=== PATIENT | female | born 1965 | race African-American/Black ===

== ENCOUNTER → 2016-07-05 | Outpatient (CLI) | payer OTHER ==
--- NOTE | 2016-07-05 15:37 | RAD ---
INDICATION: Lymphadenopathy of neck COMPARISON: None. TECHNIQUE: Grayscale and color ultrasound images obtained of the thyroid. FINDINGS: Right Lobe: 4.0 x 1.6 x 1.3 cm. Left Lobe: 4.0 x 1.5 x 1.4 cm. 9 mm complex solid appearing mass with internal vascularity right upper thyroid There is some fullness to the right submandibular region which appears hypoechoic. IMPRESSION: 1. 9 mm solid nodule seen in the right lobe of the thyroid. Follow-up examination could be obtained in 6-12 months to ensure no growth. 2. The right submandibular gland may be mildly hypoechoic. This is a borderline finding but attention on follow-up examination to ensure that this is not secondary to cause such as a region of inflammation.
--- NOTE | 2016-07-06 10:27 | RAD ---
DATE: 07/05/2016 EXAM: DIGITAL SCREEN BILAT W/CAD HISTORY: Routine screening COMPARISON: Baseline study This study was interpreted with the benefit of Computerized Aided Detection (CAD). FINDINGS: There are scattered fibroglandular densities in both breasts. No mass or suspicious microcalcifications are seen. The axillary regions are unremarkable. IMPRESSION: There is no mammographic evidence of malignancy in either breast. BI-RADS CATEGORY: 1 NEGATIVE RECOMMENDED FOLLOW-UP: 12M 12 MONTH FOLLOW-UP PQRS compliance statement: Patient information was entered into a reminder system with a target due date for the next mammogram. Mammography is a sensitive method for finding small breast cancers, but it does not detect them all and is not a substitute for careful clinical examination. A negative mammogram does not negate a clinically suspicious finding and should not result in delay in biopsying a clinically suspicious abnormality. "Our facility is accredited by the [employer] Mammography Program."
== END | disposition home or self-care (01) ==
LOC: US 14:28
PROVIDERS: ATTEND Family Medicine
DX: Z12.31 Encounter for screening mammogram for malignant neoplasm of breast (principal); R59.0 Localized enlarged lymph nodes
CPT/HCPCS: 76536; G0202; 77067

== ENCOUNTER → 2016-07-22 | Outpatient (CLI) | payer OTHER ==
[~2016-07-22] VITALS: Ht 162.6 cm; Wt 55.8 kg
[~2016-07-22] MED LIST: Iron PO
[2016-07-22 12:01] VITALS: BP 109/69
--- NOTE | 2016-07-22 14:38 | RAD ---
Exam performed: Limited thyroid ultrasound History: Subcentimeter right thyroid nodule. Date of service: 07/22/16. Discussion: The patient presents for a fine-needle aspiration of a 6.7 mm hypoechoic nodule in the right lobe of the thyroid gland adjacent to the carotid artery. Rescanning redemonstrates the nodules which is hypervascular and is surrounded by large vessels. A safe approach to biopsy the nodule was not found. It was considered that a follow-up of the subcentimeter nodule may be a reasonable approach Impression: Fine needle aspiration of a 6.7 mm hypoechoic nodule was not performed due to reasons mentioned above. This was discussed with the patient and discussed with Dr. Suad Pereira's medical office supervisor. She will follow-up with the patient
== END | disposition home or self-care (01) ==
LOC: US 11:41
PROVIDERS: ATTEND Surgery
DX: E04.1 Nontoxic single thyroid nodule (principal)
CPT/HCPCS: 76536

== ENCOUNTER → 2017-01-25 | Outpatient (CLI) | payer SELFPAY ==
[2016-07-22 12:01] VITALS: BP 109/69
--- NOTE | 2017-01-25 11:33 | RAD ---
Indication follow-up. Grayscale imaging of the thyroid was performed. Note is made of previous studies 07/22/2016 and 07/05/2016 The right lobe of the thyroid measures 4.6 x 1.3 x 1.2 cm and the left lobe of the thyroid measures 4.3 x 1.2 x 1.1 cm. Within the right lobe of the thyroid is a persistent nodule measuring approximately 8 mm in greatest dimension slight but slightly hypoechoic to the normal appearing thyroid. It appears relatively unchanged. The left lobe of the thyroid is unremarkable. IMPRESSION: Unchanged 8 mm nodule in the right lobe of the thyroid
== END | disposition home or self-care (01) ==
LOC: US 10:56
PROVIDERS: ATTEND Surgery
DX: E04.1 Nontoxic single thyroid nodule (principal)
CPT/HCPCS: 76536

== ENCOUNTER → 2018-02-13 | Outpatient (CLI) | payer OTHER ==
[2016-07-22 12:01] VITALS: BP 109/69
--- NOTE | 2018-02-13 17:06 | RAD ---
Thyroid sonography Clinical indications: Follow-up of thyroid nodule COMPARISON: January 25, 2017. FINDINGS: The longitudinal and AP and transverse dimensions of the right lobe are 4.7 cm and 1.2 cm and 1.6 cm respectively. Again seen is a hypoechoic solid nodule of the anterior mid aspect of the right lobe which measures 11 mm in greatest dimension. It measured 8 mm previously. The longitudinal and AP and transverse dimensions of the left lobe are 4.1 cm and 1.5 cm and 1.2 cm respectively. No nodule of the left lobe is evident. The isthmus is homogeneous and measures 1.2 mm in thickness. IMPRESSION: Mild increase in size of solid hypoechoic nodule of the right lobe of the thyroid gland. Given it's hypoechoic appearance and solitary nature and increase in size, recommend ultrasound-guided fine-needle aspiration. Electronically signed by: Lanre Loaiza MD (02/13/2018 5:02 PM) [id number]
== END | disposition home or self-care (01) ==
LOC: US 15:56
PROVIDERS: ATTEND Surgery
DX: E04.1 Nontoxic single thyroid nodule (principal)
CPT/HCPCS: 76536

== ENCOUNTER → 2018-02-13 | Outpatient (CLI) | payer OTHER ==
[2016-07-22 12:01] VITALS: BP 109/69
--- NOTE | 2018-02-13 13:27 | RAD ---
DATE: 02/13/2018 EXAM: DIGITAL SCREEN BILAT W/CAD HISTORY: Routine screening COMPARISON: 07/05/2016 This study was interpreted with the benefit of Computerized Aided Detection (CAD). Breast Density: SCATTERED The breast parenchyma shows scattered fibroglandular densities. Breast parenchyma level B. FINDINGS: No new or enlarging breast densities are seen. No suspicious microcalcifications are evident. IMPRESSION: Stable mammograms without evidence of malignancy. BI-RADS CATEGORY: 1 NEGATIVE RECOMMENDED FOLLOW-UP: 12M 12 MONTH FOLLOW-UP PQRS compliance statement: Patient information was entered into a reminder system with a target due date for the next mammogram. Mammography is a sensitive method for finding small breast cancers, but it does not detect them all and is not a substitute for careful clinical examination. A negative mammogram does not negate a clinically suspicious finding and should not result in delay in biopsying a clinically suspicious abnormality. "Our facility is accredited by the [employer] Mammography [employer]."
== END | disposition home or self-care (01) ==
LOC: MAMMO 12:49
PROVIDERS: ATTEND Family Medicine
DX: Z12.31 Encounter for screening mammogram for malignant neoplasm of breast (principal)
CPT/HCPCS: 77067

== ENCOUNTER → 2018-03-21 | Outpatient (CLI) | payer OTHER ==
[2016-07-22 12:01] VITALS: BP 109/69
[~2018-03-21] MED LIST changes: +LIDOCAINE 1% Multi-Dose 50 ML VIAL. INJ ONE
--- NOTE | 2018-03-21 14:46 | RAD ---
Ultrasound-guided right thyroid biopsy, 03/21/2018: History: Suspicious thyroid nodule Previous studies demonstrated a suspicious nodule in the right lobe of the gland. Under local anesthesia, aseptic conditions and sonographic guidance a 25-gauge needle was passed into this nodule via an anteromedial approach. 4 separate aspirates were obtained from the nodule in this manner with the materials sent to pathology for evaluation. Hemostasis was then obtained. The patient tolerated the procedure well and left the department in good condition. The pathology results are pending.
--- NOTE | 2018-03-22 16:09 | PATHOLOGY ---
Note [facility] Accession Number: [id number] TESTS RESULT FLAG UNITS REF RANGE LAB Clinician Provided Cytology Information No. of containers..01 Other (Miscellaneous) Source: RT THYROID DIAGNOSIS: RT THYROID INADEQUATE, INSUFFICIENT CELLS FOR STUDY. [place] CATEGORY I. NONDIAGNOSTIC: VIRTUALLY ACELLULAR SPECIMEN. THIS INTERPRETATION INCLUDES EVALUATION OF A CELL BLOCK. Signed out by: Rich Bryan MD, Pathologist NPI- [id number] Performed by: Sheng Cortez, Environmental Services Floor Tech ([facility]) Gross description: 01 30ML, PINK, CLOUDY /LCS FLAG LEGEND: L-Low Normal,H-High Normal,LL-Alert Low,HH-Alert High <-Panic Low,>-Panic High,A-Abnormal,AA-Critical Abnormal Performed at: [address] [place] [address] Yfn Vivas MD, [facility] [address] [place] [address] Frantz Hopkins MD, Specimen Comment: A courtesy copy of this report has been sent to Specimen Comment: [phone]. Specimen Comment: Report sent to Performed at: [address] [place] [address] [address], [place], [place] [id number] MD Yfn Vivsa MD Phone: [phone]
== END | disposition home or self-care (01) ==
LOC: US 13:33
PROVIDERS: ATTEND Surgery
DX: E04.1 Nontoxic single thyroid nodule (principal)
CPT/HCPCS: 10022; 76942; 88173; 88305

== ENCOUNTER → 2018-04-03 | Day surgery (SDC) | payer OTHER ==
[~2018-04-03] MED LIST changes: +IV RINGERS,LACTATED 1000ML 1,000 ML IV SCH; -LIDOCAINE 1% Multi-Dose 50 ML VIAL. INJ ONE; +MIDAZOLAM HCL/PF 5 MG/5 ML VIAL. IV ONE; +MIDAZOLAM HCL/PF 5 MG/5 ML VIAL. ONE; +diphenhydrAMINE 50 MG/ML VIAL IV ONE; +diphenhydrAMINE 50 MG/ML VIAL ONE; +fentaNYL PF VIAL 100 MCG/2 ML VIAL IV ONE; +fentaNYL PF VIAL 100 MCG/2 ML VIAL ONE
[2018-04-03 17:15] VITALS: BP 113/71
== END | disposition home or self-care (01) ==
LOC: ENDOS 15:26
PROVIDERS: ATTEND Internal Medicine Gastroenterology
DX: Z12.11 Encounter for screening for malignant neoplasm of colon (principal); K57.30 Diverticulosis of large intestine without perforation or abscess without bleeding; K64.0 First degree hemorrhoids; D64.9 Anemia, unspecified; Z72.89 Other problems related to lifestyle
CPT/HCPCS: 45378; G0500; J1200; J2250; J3010

== ENCOUNTER → 2019-02-14 | Outpatient (CLI) | payer OTHER ==
[2018-04-03 17:15] VITALS: BP 113/71
[~2019-02-14] MED LIST changes: -IV RINGERS,LACTATED 1000ML 1,000 ML IV SCH; -MIDAZOLAM HCL/PF 5 MG/5 ML VIAL. IV ONE; -MIDAZOLAM HCL/PF 5 MG/5 ML VIAL. ONE; -diphenhydrAMINE 50 MG/ML VIAL IV ONE; -diphenhydrAMINE 50 MG/ML VIAL ONE; -fentaNYL PF VIAL 100 MCG/2 ML VIAL IV ONE; -fentaNYL PF VIAL 100 MCG/2 ML VIAL ONE
--- NOTE | 2019-02-15 17:12 | RAD ---
DATE: 02/14/2019 EXAM: DIGITAL SCREEN BILAT W/CAD HISTORY: Routine screening COMPARISON: 07/05/2016, 02/13/2018 mammographic exams This study was interpreted with the benefit of Computerized Aided Detection (CAD). Breast Density: HETERO The breast parenchyma is heterogenously dense, which could reduce sensitivity of mammography. Breast parenchyma level C. FINDINGS: No suspicious calcific lesions, masses, or distortion. IMPRESSION: Stable BI-RADS CATEGORY: 1 NEGATIVE RECOMMENDED FOLLOW-UP: 12M 12 MONTH FOLLOW-UP PQRS compliance statement: Patient information was entered into a reminder system with a target due date in one year for the next mammogram. Mammography is a sensitive method for finding small breast cancers, but it does not detect them all and is not a substitute for careful clinical examination. A negative mammogram does not negate a clinically suspicious finding and should not result in delay in biopsying a clinically suspicious abnormality. "Our facility is accredited by the [employer] Mammography Program."
== END | disposition home or self-care (01) ==
LOC: MAMMO 09:58
PROVIDERS: ATTEND Family Medicine
DX: Z12.31 Encounter for screening mammogram for malignant neoplasm of breast (principal); N64.89 Other specified disorders of breast
CPT/HCPCS: 77067

== ENCOUNTER → 2019-03-18 | Outpatient (CLI) | payer OTHER ==
[2018-04-03 17:15] VITALS: BP 113/71
--- NOTE | 2019-03-19 14:37 | RAD ---
THYROID ULTRASOUND History: Follow-up right thyroid nodule. Comparison: February 13, 2018. Technique: Multiple grayscale and color Doppler images of the thyroid gland were obtained. Findings: Right thyroid measures 4.1 x 1.4 x 1.2 cm . Left thyroid measures 4.0 x 1.2 x 1.4 cm. Isthmus measures 0.2 cm. Solid slightly hypoechoic nodule within the right mid thyroid measures 1.1 x 0.8 x 0.6 cm, unchanged compared to prior. TI-RADS 4. No new nodules. ACR Thyroid Imaging, Reporting And Data System (TI-RADS): White Paper Of The ACR TI-RADS Committee. Journal of the [employer], volume 14, issue 5, pages 587-595 (September 2016). IMPRESSION: 1. Unchanged TI-RADS 4 right thyroid nodule. No new nodules. Electronically signed by: Tim Boss DO (03/19/2019 2:34 PM) [facility]
== END | disposition home or self-care (01) ==
LOC: US 10:47
PROVIDERS: ATTEND Surgery
DX: E04.1 Nontoxic single thyroid nodule (principal)
CPT/HCPCS: 76536

== ENCOUNTER → 2020-03-05 | Outpatient (CLI) | payer OTHER ==
[2018-04-03 17:15] VITALS: BP 113/71
--- NOTE | 2020-03-06 13:11 | RAD ---
DATE: 03/05/2020 10:29 AM EXAM: DIGITAL SCREEN BILAT W/CAD HISTORY: Screening COMPARISON: 02/14/2019 Bilateral full field craniocaudal and mediolateral oblique images were obtained using digital technique. This study was interpreted with the benefit of Computerized Aided Detection (CAD). FINDINGS: Breast Density: SCATTERED The breast parenchyma shows scattered fibroglandular densities. Breast parenchyma level B No suspicious masses, microcalcifications or architectural distortion is present to suggest malignancy in either breast. The visualized axillae are unremarkable. IMPRESSION: No mammographic evidence of malignancy. BI-RADS CATEGORY: 1 NEGATIVE RECOMMENDED FOLLOW-UP: 12M 12 MONTH FOLLOW-UP Annual screening mammography is recommended, unless clinically indicated sooner based on symptoms or change in physical exam. PQRS compliance statement: Patient information was entered into a reminder system with a target due date for the next mammogram. Mammography is a sensitive method for finding small breast cancers, but it does not detect them all and is not a substitute for careful clinical examination. A negative mammogram does not negate a clinically suspicious finding and should not result in delay in biopsying a clinically suspicious abnormality. "Our facility is accredited by the [employer] Mammography Program."
== END ==
LOC: MAMMO 10:22
PROVIDERS: ATTEND Family Medicine
DX: Z12.31 Encounter for screening mammogram for malignant neoplasm of breast (principal)
CPT/HCPCS: 77067

== ENCOUNTER → 2020-03-16 | Outpatient (CLI) | payer OTHER ==
[2018-04-03 17:15] VITALS: BP 113/71
--- NOTE | 2020-03-16 17:11 | RAD ---
Ultrasound soft tissue neck thyroid HISTORY: Follow-up thyroid nodule Sonographic examination of the anterior neck and thyroid was performed and multiple static images were obtained. COMPARISON: March 18, 2019 The right lobe of the thyroid measures 4.8 x 1.3 x 1.1 cm. The left lobe of the thyroid measures 4.4 x 1.3 x 1.1 cm. The isthmus measures 2.1 mm in thickness. There is an isoechoic nodule in the mid right lobe of the thyroid anteriorly that measures 1.0 x 0.8 x 0.6 cm. IMPRESSION: Stable benign-appearing nodule right lobe of the thyroid. No new findings. Electronically signed by: Morgan Boyd III, MD (03/16/2020 5:08 PM) [facility]
== END ==
LOC: US 16:00
PROVIDERS: ATTEND Surgery
DX: E04.1 Nontoxic single thyroid nodule (principal)
CPT/HCPCS: 76536

== ENCOUNTER → 2020-06-01 | Outpatient (CLI) | payer OTHER ==
[2018-04-03 17:15] VITALS: BP 113/71
[2020-06-01 12:45] LABS: BASO % 0 % (0-3); EOS # 0.1 x10^3/uL (0.0-0.7); EOS % 1 % (0-3); HEMATOCRIT 35.4 % (36.0-47.0); HEMOGLOBIN 11.4 g/dL (12.0-15.5); LYMPH % 21 % (24-48); MEAN CORPUSCULAR HEMOGLOBIN 21 pg (25-35); MEAN CORPUSCULAR HGB CONC 32 g/dL (31-37); MEAN CORPUSCULAR VOLUME 66 fL (79-100); MONO # 0.8 x10^3/uL (0.0-1.1); MONO % 9 % (0-9); NEUT # 6.5 x10^3/uL (1.8-7.7); NEUT % 69 % (31-73); PLATELET COUNT 240 x10^3/uL (140-400); RED BLOOD COUNT 5.33 x10^6/uL (3.50-5.40); RED CELL DISTRIBUTION WIDTH 16.7 % (11.5-14.5); WHITE BLOOD COUNT 9.4 x10^3/uL (4.0-11.0)
[2020-06-01 12:56] LABS: CALCIUM 9.3 mg/dL (8.5-10.1); CREATININE 0.5 mg/dL (0.6-1.0); GFR 127.6; POTASSIUM 3.6 mmol/L (3.5-5.1)
[2020-06-01 13:02] LABS: ALBUMIN 3.9 g/dL (3.4-5.0); ALBUMIN/GLOBULIN RATIO 1.1 (1.0-1.7); TOTAL BILIRUBIN 0.8 mg/dL (0.2-1.0); TOTAL PROTEIN 7.6 g/dL (6.4-8.2)
[2020-06-01 15:04] LABS: PLT ESTIMATE ADEQUATE (ADEQUATE)
[2020-06-01 15:05] LABS: ANISOCYTOSIS PRESENT; HYPOCHROMIA MOD; MICROCYTOSIS MOD
[2020-06-01 15:06] LABS: OVALOCYTES OCC
== END ==
LOC: ONCLAB 12:27
PROVIDERS: ATTEND Internal Medicine Hematology & Oncology
DX: D56.3 Thalassemia minor (principal)
CPT/HCPCS: 36415; 80053; 85025

== ENCOUNTER → 2020-06-16 | Outpatient (CLI) | payer OTHER ==
[2018-04-03 17:15] VITALS: BP 113/71
[2020-06-16 09:57] LABS: BASO % 1 % (0-3); EOS # 0.1 x10^3/uL (0.0-0.7); EOS % 1 % (0-3); HEMATOCRIT 35.3 % (36.0-47.0); HEMOGLOBIN 11.2 g/dL (12.0-15.5); LYMPH # 1.6 x10^3/uL (1.0-4.8); LYMPH % 25 % (24-48); MEAN CORPUSCULAR HEMOGLOBIN 21 pg (25-35); MEAN CORPUSCULAR HGB CONC 32 g/dL (31-37); MEAN CORPUSCULAR VOLUME 66 fL (79-100); MONO # 0.4 x10^3/uL (0.0-1.1); MONO % 6 % (0-9); NEUT # 4.3 x10^3/uL (1.8-7.7); NEUT % 68 % (31-73); PLATELET COUNT 269 x10^3/uL (140-400); RED BLOOD COUNT 5.31 x10^6/uL (3.50-5.40); RED CELL DISTRIBUTION WIDTH 16.7 % (11.5-14.5); WHITE BLOOD COUNT 6.4 x10^3/uL (4.0-11.0)
[2020-06-16 10:13] LABS: CREATININE,RANDOM URINE < 13.0 mg/dL (Not Establ.)
[2020-06-16 10:56] LABS: CALCIUM 9.4 mg/dL (8.5-10.1); CREATININE 0.7 mg/dL (0.6-1.0); GFR 86.6; POTASSIUM 3.8 mmol/L (3.5-5.1)
[2020-06-16 11:02] LABS: ALBUMIN 3.9 g/dL (3.4-5.0); TOTAL PROTEIN 7.1 g/dL (6.4-8.2)
[2020-06-16 11:03] LABS: ALBUMIN/GLOBULIN RATIO 1.2 (1.0-1.7); TOTAL BILIRUBIN 0.6 mg/dL (0.2-1.0)
== END ==
LOC: ONCLAB 09:23
PROVIDERS: ATTEND Physician Assistant
DX: D56.3 Thalassemia minor (principal); R79.89 Other specified abnormal findings of blood chemistry
CPT/HCPCS: 36415; 80053; 82570; 82728; 83540; 83550; 84156; 84630; 85025

== ENCOUNTER → 2020-06-30 | Outpatient (CLI) | payer OTHER ==
[2018-04-03 17:15] VITALS: BP 113/71
[2020-06-30 10:20] LABS: CREATININE,RANDOM URINE 24.8 mg/dL (Not Establ.)
[2020-06-30 10:22] LABS: BASO % 1 % (0-3); EOS # 0.1 x10^3/uL (0.0-0.7); EOS % 1 % (0-3); HEMATOCRIT 35.1 % (36.0-47.0); HEMOGLOBIN 11.1 g/dL (12.0-15.5); LYMPH # 1.8 x10^3/uL (1.0-4.8); LYMPH % 27 % (24-48); MEAN CORPUSCULAR HEMOGLOBIN 21 pg (25-35); MEAN CORPUSCULAR HGB CONC 32 g/dL (31-37); MEAN CORPUSCULAR VOLUME 66 fL (79-100); MONO # 0.4 x10^3/uL (0.0-1.1); MONO % 6 % (0-9); NEUT # 4.2 x10^3/uL (1.8-7.7); NEUT % 65 % (31-73); PLATELET COUNT 183 x10^3/uL (140-400); RED CELL DISTRIBUTION WIDTH 16.4 % (11.5-14.5); WHITE BLOOD COUNT 6.6 x10^3/uL (4.0-11.0)
[2020-06-30 10:29] LABS: CALCIUM 9.3 mg/dL (8.5-10.1); CREATININE 0.6 mg/dL (0.6-1.0); GFR 103.4; POTASSIUM 3.9 mmol/L (3.5-5.1)
[2020-06-30 10:36] LABS: ALBUMIN/GLOBULIN RATIO 1.1 (1.0-1.7); TOTAL BILIRUBIN 0.7 mg/dL (0.2-1.0); TOTAL PROTEIN 7.6 g/dL (6.4-8.2)
[2020-06-30 11:06] LABS: PLT ESTIMATE ADEQUATE (ADEQUATE)
[2020-06-30 11:07] LABS: ANISOCYTOSIS SLIGHT; HYPOCHROMIA MOD; MICROCYTOSIS MARKED; POIKILOCYTOSIS PRESENT
[2020-06-30 11:08] LABS: OVALOCYTES FEW
== END ==
LOC: ONCLAB 09:54
PROVIDERS: ATTEND Internal Medicine Hematology & Oncology
DX: R79.89 Other specified abnormal findings of blood chemistry (principal); D56.3 Thalassemia minor
CPT/HCPCS: 36415; 80053; 82570; 84156; 85025

== ENCOUNTER → 2020-07-14 | Outpatient (CLI) | payer OTHER ==
[2018-04-03 17:15] VITALS: BP 113/71
[2020-07-14 13:13] LABS: BASO % 0 % (0-3); EOS # 0.1 x10^3/uL (0.0-0.7); EOS % 1 % (0-3); HEMOGLOBIN 10.5 g/dL (12.0-15.5); LYMPH # 1.7 x10^3/uL (1.0-4.8); LYMPH % 21 % (24-48); MEAN CORPUSCULAR HEMOGLOBIN 21 pg (25-35); MEAN CORPUSCULAR HGB CONC 32 g/dL (31-37); MEAN CORPUSCULAR VOLUME 66 fL (79-100); MONO # 0.6 x10^3/uL (0.0-1.1); MONO % 8 % (0-9); NEUT # 5.4 x10^3/uL (1.8-7.7); NEUT % 69 % (31-73); PLATELET COUNT 224 x10^3/uL (140-400); RED BLOOD COUNT 5.01 x10^6/uL (3.50-5.40); RED CELL DISTRIBUTION WIDTH 16.2 % (11.5-14.5); WHITE BLOOD COUNT 7.7 x10^3/uL (4.0-11.0)
[2020-07-14 13:29] LABS: CALCIUM 8.5 mg/dL (8.5-10.1); CREATININE 0.6 mg/dL (0.6-1.0); GFR 103.4; POTASSIUM 3.8 mmol/L (3.5-5.1)
[2020-07-14 13:34] LABS: ALBUMIN 3.6 g/dL (3.4-5.0); ALBUMIN/GLOBULIN RATIO 1.1 (1.0-1.7); TOTAL BILIRUBIN 0.6 mg/dL (0.2-1.0); TOTAL PROTEIN 6.8 g/dL (6.4-8.2)
== END ==
LOC: ONCLAB 12:46
PROVIDERS: ATTEND Internal Medicine Hematology & Oncology
DX: D56.3 Thalassemia minor (principal); R79.89 Other specified abnormal findings of blood chemistry
CPT/HCPCS: 36415; 80053; 82570; 84156; 85025

== ENCOUNTER → 2020-07-28 | Outpatient (CLI) | payer OTHER ==
[2018-04-03 17:15] VITALS: BP 113/71
[2020-07-28 13:14] LABS: BASO # 0.1 x10^3/uL (0.0-0.2); BASO % 1 % (0-3); EOS # 0.1 x10^3/uL (0.0-0.7); EOS % 1 % (0-3); HEMATOCRIT 34.9 % (36.0-47.0); HEMOGLOBIN 11.1 g/dL (12.0-15.5); LYMPH # 1.9 x10^3/uL (1.0-4.8); LYMPH % 26 % (24-48); MEAN CORPUSCULAR HEMOGLOBIN 21 pg (25-35); MEAN CORPUSCULAR HGB CONC 32 g/dL (31-37); MEAN CORPUSCULAR VOLUME 66 fL (79-100); MONO # 0.5 x10^3/uL (0.0-1.1); MONO % 7 % (0-9); NEUT # 4.7 x10^3/uL (1.8-7.7); NEUT % 64 % (31-73); PLATELET COUNT 274 x10^3/uL (140-400); RED BLOOD COUNT 5.27 x10^6/uL (3.50-5.40); RED CELL DISTRIBUTION WIDTH 16.7 % (11.5-14.5); WHITE BLOOD COUNT 7.4 x10^3/uL (4.0-11.0)
[2020-07-28 13:31] LABS: CALCIUM 9.1 mg/dL (8.5-10.1); CREATININE 0.6 mg/dL (0.6-1.0); GFR 103.4
[2020-07-28 13:35] LABS: ALBUMIN/GLOBULIN RATIO 1.2 (1.0-1.7); TOTAL BILIRUBIN 0.8 mg/dL (0.2-1.0); TOTAL PROTEIN 7.4 g/dL (6.4-8.2)
[2020-07-28 13:51] LABS: PLT ESTIMATE ADEQUATE (ADEQUATE)
[2020-07-28 13:53] LABS: HYPOCHROMIA SLIGHT
[2020-07-28 13:54] LABS: OVALOCYTES FEW; TARGET CELLS MOD
[2020-07-28 14:28] LABS: MICROCYTOSIS SLIGHT; POIKILOCYTOSIS MOD
[2020-07-28 14:29] LABS: SCHISTOCYTES FEW; TEAR DROP CELLS FEW
[2020-07-28 14:30] LABS: ANISOCYTOSIS SLIGHT
== END ==
LOC: ONCLAB 12:57
PROVIDERS: ATTEND Internal Medicine Hematology & Oncology
DX: R79.89 Other specified abnormal findings of blood chemistry (principal)
CPT/HCPCS: 36415; 80053; 85025

== ENCOUNTER → 2020-08-11 | Outpatient (CLI) | payer OTHER ==
[2018-04-03 17:15] VITALS: BP 113/71
[2020-08-11 14:07] LABS: BASO % 1 % (0-3); EOS # 0.1 x10^3/uL (0.0-0.7); EOS % 2 % (0-3); HEMATOCRIT 32.6 % (36.0-47.0); HEMOGLOBIN 10.2 g/dL (12.0-15.5); LYMPH # 1.3 x10^3/uL (1.0-4.8); LYMPH % 20 % (24-48); MEAN CORPUSCULAR HEMOGLOBIN 21 pg (25-35); MEAN CORPUSCULAR HGB CONC 31 g/dL (31-37); MEAN CORPUSCULAR VOLUME 67 fL (79-100); MONO # 0.4 x10^3/uL (0.0-1.1); MONO % 6 % (0-9); NEUT # 4.6 x10^3/uL (1.8-7.7); NEUT % 72 % (31-73); PLATELET COUNT 208 x10^3/uL (140-400); RED BLOOD COUNT 4.91 x10^6/uL (3.50-5.40); RED CELL DISTRIBUTION WIDTH 16.2 % (11.5-14.5); WHITE BLOOD COUNT 6.4 x10^3/uL (4.0-11.0)
[2020-08-11 14:46] LABS: CREATININE,RANDOM URINE < 13.0 mg/dL (Not Establ.)
[2020-08-11 15:04] LABS: CALCIUM 8.5 mg/dL (8.5-10.1); CREATININE 0.6 mg/dL (0.6-1.0); GFR 103.4; POTASSIUM 3.7 mmol/L (3.5-5.1)
[2020-08-11 15:42] LABS: ALBUMIN 3.8 g/dL (3.4-5.0); ALBUMIN/GLOBULIN RATIO 1.2 (1.0-1.7); TOTAL BILIRUBIN 0.6 mg/dL (0.2-1.0)
== END ==
LOC: ONCLAB 13:20
PROVIDERS: ATTEND Physician Assistant
DX: R79.89 Other specified abnormal findings of blood chemistry (principal)
CPT/HCPCS: 80053; 82570; 82728; 83540; 83550; 83615; 84156; 84630; 85025

== ENCOUNTER → 2020-08-25 | Outpatient (CLI) | payer OTHER ==
[2018-04-03 17:15] VITALS: BP 113/71
[2020-08-25 13:42] LABS: BASO % 0 % (0-3); EOS # 0.1 x10^3/uL (0.0-0.7); EOS % 2 % (0-3); HEMATOCRIT 30.6 % (36.0-47.0); HEMOGLOBIN 9.8 g/dL (12.0-15.5); LYMPH # 1.6 x10^3/uL (1.0-4.8); LYMPH % 25 % (24-48); MEAN CORPUSCULAR HEMOGLOBIN 21 pg (25-35); MEAN CORPUSCULAR HGB CONC 32 g/dL (31-37); MEAN CORPUSCULAR VOLUME 66 fL (79-100); MONO # 0.5 x10^3/uL (0.0-1.1); MONO % 9 % (0-9); NEUT % 64 % (31-73); PLATELET COUNT 252 x10^3/uL (140-400); RED BLOOD COUNT 4.63 x10^6/uL (3.50-5.40); RED CELL DISTRIBUTION WIDTH 16.1 % (11.5-14.5); WHITE BLOOD COUNT 6.3 x10^3/uL (4.0-11.0)
[2020-08-25 14:00] LABS: CALCIUM 8.4 mg/dL (8.5-10.1); CREATININE 0.5 mg/dL (0.6-1.0); GFR 127.6; POTASSIUM 3.8 mmol/L (3.5-5.1)
[2020-08-25 14:07] LABS: ALBUMIN 3.5 g/dL (3.4-5.0); TOTAL BILIRUBIN 0.4 mg/dL (0.2-1.0); TOTAL PROTEIN 6.9 g/dL (6.4-8.2)
== END ==
LOC: ONCLAB 13:11
PROVIDERS: ATTEND Internal Medicine Hematology & Oncology
DX: R79.89 Other specified abnormal findings of blood chemistry (principal)
CPT/HCPCS: 36415; 80053; 85025

== ENCOUNTER → 2020-09-08 | Outpatient (CLI) | payer OTHER ==
[2018-04-03 17:15] VITALS: BP 113/71
[2020-09-08 14:18] LABS: BASO # 0.1 x10^3/uL (0.0-0.2); BASO % 1 % (0-3); EOS # 0.1 x10^3/uL (0.0-0.7); EOS % 1 % (0-3); HEMATOCRIT 32.1 % (36.0-47.0); HEMOGLOBIN 10.2 g/dL (12.0-15.5); LYMPH # 1.7 x10^3/uL (1.0-4.8); LYMPH % 23 % (24-48); MEAN CORPUSCULAR HEMOGLOBIN 21 pg (25-35); MEAN CORPUSCULAR HGB CONC 32 g/dL (31-37); MEAN CORPUSCULAR VOLUME 67 fL (79-100); MONO # 0.4 x10^3/uL (0.0-1.1); MONO % 6 % (0-9); NEUT # 5.1 x10^3/uL (1.8-7.7); NEUT % 69 % (31-73); PLATELET COUNT 225 x10^3/uL (140-400); RED BLOOD COUNT 4.83 x10^6/uL (3.50-5.40); RED CELL DISTRIBUTION WIDTH 17.2 % (11.5-14.5); WHITE BLOOD COUNT 7.3 x10^3/uL (4.0-11.0)
[2020-09-08 14:34] LABS: CALCIUM 8.8 mg/dL (8.5-10.1); CREATININE 0.5 mg/dL (0.6-1.0); GFR 127.6; POTASSIUM 3.8 mmol/L (3.5-5.1)
[2020-09-08 14:46] LABS: ALBUMIN 4.1 g/dL (3.4-5.0); ALBUMIN/GLOBULIN RATIO 1.2 (1.0-1.7); ANISOCYTOSIS SLIGHT; PLT ESTIMATE ADEQUATE (ADEQUATE); TOTAL BILIRUBIN 0.4 mg/dL (0.2-1.0); TOTAL PROTEIN 7.5 g/dL (6.4-8.2)
[2020-09-08 15:01] LABS: HYPOCHROMIA MOD; MICROCYTOSIS MOD; OVALOCYTES FEW; POIKILOCYTOSIS SLIGHT
[2020-09-08 15:02] LABS: SCHISTOCYTES OCC
== END ==
LOC: ONCLAB 13:18
PROVIDERS: ATTEND Internal Medicine Hematology & Oncology
DX: R79.89 Other specified abnormal findings of blood chemistry (principal)
CPT/HCPCS: 36415; 80053; 85025

== ENCOUNTER → 2020-10-13 | Outpatient (CLI) | payer OTHER ==
[2018-04-03 17:15] VITALS: BP 113/71
[2020-10-13 13:48] LABS: BASO % 1 % (0-3); EOS # 0.1 x10^3/uL (0.0-0.7); EOS % 2 % (0-3); HEMATOCRIT 30.7 % (36.0-47.0); HEMOGLOBIN 9.6 g/dL (12.0-15.5); LYMPH # 1.9 x10^3/uL (1.0-4.8); LYMPH % 28 % (24-48); MEAN CORPUSCULAR HEMOGLOBIN 21 pg (25-35); MEAN CORPUSCULAR HGB CONC 31 g/dL (31-37); MEAN CORPUSCULAR VOLUME 66 fL (79-100); MONO # 0.6 x10^3/uL (0.0-1.1); MONO % 10 % (0-9); NEUT % 60 % (31-73); PLATELET COUNT 227 x10^3/uL (140-400); RED BLOOD COUNT 4.64 x10^6/uL (3.50-5.40); WHITE BLOOD COUNT 6.7 x10^3/uL (4.0-11.0)
[2020-10-13 13:59] LABS: CALCIUM 8.3 mg/dL (8.5-10.1); CREATININE 0.6 mg/dL (0.6-1.0); GFR 103.4; POTASSIUM 3.8 mmol/L (3.5-5.1)
[2020-10-13 14:08] LABS: ALBUMIN 3.8 g/dL (3.4-5.0); ALBUMIN/GLOBULIN RATIO 1.2 (1.0-1.7); TOTAL BILIRUBIN 0.5 mg/dL (0.2-1.0); TOTAL PROTEIN 6.9 g/dL (6.4-8.2)
[2020-10-13 16:08] LABS: MICROCYTOSIS MARKED; PLT ESTIMATE ADEQUATE (ADEQUATE); POLYCHROMASIA SLIGHT
[2020-10-13 16:09] LABS: ANISOCYTOSIS SLIGHT; HYPOCHROMIA MOD; OVALOCYTES FEW; SCHISTOCYTES FEW
== END ==
LOC: ONCLAB 13:31
PROVIDERS: ATTEND Internal Medicine Hematology & Oncology
DX: R79.89 Other specified abnormal findings of blood chemistry (principal)
CPT/HCPCS: 36415; 80053; 85025

== ENCOUNTER → 2020-11-24 | Outpatient (CLI) | payer OTHER ==
[2018-04-03 17:15] VITALS: BP 113/71
[2020-11-24 13:14] LABS: BASO % 1 % (0-3); EOS # 0.1 x10^3/uL (0.0-0.7); EOS % 1 % (0-3); HEMATOCRIT 30.8 % (36.0-47.0); HEMOGLOBIN 9.7 g/dL (12.0-15.5); LYMPH % 35 % (24-48); MEAN CORPUSCULAR HEMOGLOBIN 21 pg (25-35); MEAN CORPUSCULAR HGB CONC 32 g/dL (31-37); MEAN CORPUSCULAR VOLUME 66 fL (79-100); MONO # 0.5 x10^3/uL (0.0-1.1); MONO % 10 % (0-9); NEUT % 54 % (31-73); PLATELET COUNT 203 x10^3/uL (140-400); RED BLOOD COUNT 4.66 x10^6/uL (3.50-5.40); RED CELL DISTRIBUTION WIDTH 16.6 % (11.5-14.5); WHITE BLOOD COUNT 5.6 x10^3/uL (4.0-11.0)
[2020-11-24 13:27] LABS: CALCIUM 8.8 mg/dL (8.5-10.1); CREATININE 0.6 mg/dL (0.6-1.0)
[2020-11-24 13:32] LABS: ALBUMIN 3.8 g/dL (3.4-5.0); ALBUMIN/GLOBULIN RATIO 1.2 (1.0-1.7); TOTAL BILIRUBIN 0.5 mg/dL (0.2-1.0); TOTAL PROTEIN 7.1 g/dL (6.4-8.2)
[2020-11-24 14:18] LABS: HYPOCHROMIA MOD; MICROCYTOSIS MARKED; PLT ESTIMATE ADEQUATE (ADEQUATE); POLYCHROMASIA SLIGHT
[2020-11-24 14:19] LABS: ANISOCYTOSIS SLIGHT; OVALOCYTES FEW; SCHISTOCYTES OCC
[2020-11-24 14:22] LABS: TARGET CELLS OCC
== END ==
LOC: ONCLAB 12:58
PROVIDERS: ATTEND Physician Assistant
DX: R79.89 Other specified abnormal findings of blood chemistry (principal)
CPT/HCPCS: 36415; 80053; 82728; 83540; 83550; 85025

== ENCOUNTER → 2020-11-30 | Outpatient (CLI) | payer OTHER ==
[2018-04-03 17:15] VITALS: BP 113/71
[2020-12-01 09:28] LABS: FECAL OB PT NEGATIVE (NEG)
[2020-12-01 09:29] LABS: FECAL OB PT NEGATIVE (NEG)
[2020-12-01 09:30] LABS: FECAL OB PT NEGATIVE (NEG)
== END ==
LOC: ONCLAB 13:07
PROVIDERS: ATTEND Internal Medicine Hematology & Oncology
DX: R94.5 Abnormal results of liver function studies (principal); R79.89 Other specified abnormal findings of blood chemistry
CPT/HCPCS: 82274

== ENCOUNTER → 2021-01-05 | Outpatient (CLI) | payer OTHER ==
[2018-04-03 17:15] VITALS: BP 113/71
[2021-01-05 13:24] LABS: BASO % 0 % (0-3); EOS # 0.1 x10^3/uL (0.0-0.7); EOS % 1 % (0-3); HEMATOCRIT 32.3 % (36.0-47.0); HEMOGLOBIN 10.3 g/dL (12.0-15.5); LYMPH # 1.6 x10^3/uL (1.0-4.8); LYMPH % 19 % (24-48); MEAN CORPUSCULAR HEMOGLOBIN 21 pg (25-35); MEAN CORPUSCULAR HGB CONC 32 g/dL (31-37); MEAN CORPUSCULAR VOLUME 66 fL (79-100); MONO # 0.8 x10^3/uL (0.0-1.1); MONO % 9 % (0-9); NEUT # 6.1 x10^3/uL (1.8-7.7); NEUT % 71 % (31-73); PLATELET COUNT 257 x10^3/uL (140-400); RED BLOOD COUNT 4.89 x10^6/uL (3.50-5.40); RED CELL DISTRIBUTION WIDTH 16.5 % (11.5-14.5); WHITE BLOOD COUNT 8.6 x10^3/uL (4.0-11.0)
[2021-01-05 13:32] LABS: CALCIUM 9.2 mg/dL (8.5-10.1); CREATININE 0.6 mg/dL (0.6-1.0); POTASSIUM 4.2 mmol/L (3.5-5.1)
[2021-01-05 13:37] LABS: ALBUMIN 3.8 g/dL (3.4-5.0); ALBUMIN/GLOBULIN RATIO 1.1 (1.0-1.7); TOTAL BILIRUBIN 0.4 mg/dL (0.2-1.0); TOTAL PROTEIN 7.3 g/dL (6.4-8.2)
== END ==
LOC: ONCLAB 12:43
PROVIDERS: ATTEND Internal Medicine Hematology & Oncology
DX: R79.89 Other specified abnormal findings of blood chemistry (principal); D56.3 Thalassemia minor
CPT/HCPCS: 36415; 80053; 82728; 83540; 83550; 85025; 85651

== ENCOUNTER → 2021-02-09 | Outpatient (CLI) | payer OTHER ==
[2018-04-03 17:15] VITALS: BP 113/71
[2021-02-09 11:21] LABS: BASO % 1 % (0-3); EOS # 0.1 x10^3/uL (0.0-0.7); EOS % 2 % (0-3); HEMATOCRIT 33.5 % (36.0-47.0); HEMOGLOBIN 10.4 g/dL (12.0-15.5); LYMPH # 1.4 x10^3/uL (1.0-4.8); LYMPH % 22 % (24-48); MEAN CORPUSCULAR HEMOGLOBIN 21 pg (25-35); MEAN CORPUSCULAR HGB CONC 31 g/dL (31-37); MEAN CORPUSCULAR VOLUME 66 fL (79-100); MONO # 0.4 x10^3/uL (0.0-1.1); MONO % 6 % (0-9); NEUT # 4.6 x10^3/uL (1.8-7.7); NEUT % 70 % (31-73); PLATELET COUNT 235 x10^3/uL (140-400); RED BLOOD COUNT 5.05 x10^6/uL (3.50-5.40); RED CELL DISTRIBUTION WIDTH 16.5 % (11.5-14.5); WHITE BLOOD COUNT 6.6 x10^3/uL (4.0-11.0)
[2021-02-09 11:32] LABS: CALCIUM 9.1 mg/dL (8.5-10.1); CREATININE 0.6 mg/dL (0.6-1.0); POTASSIUM 3.7 mmol/L (3.5-5.1)
[2021-02-09 11:48] LABS: ANISOCYTOSIS MOD; HYPOCHROMIA SLIGHT; MICROCYTOSIS SLIGHT; PLT ESTIMATE ADEQUATE (ADEQUATE)
[2021-02-09 11:49] LABS: POLYCHROMASIA OCCASIONAL
[2021-02-09 12:11] LABS: ALBUMIN 3.8 g/dL (3.4-5.0); TOTAL BILIRUBIN 0.6 mg/dL (0.2-1.0); TOTAL PROTEIN 7.5 g/dL (6.4-8.2)
== END ==
LOC: ONCLAB 11:00
PROVIDERS: ATTEND Internal Medicine Hematology & Oncology
DX: R79.89 Other specified abnormal findings of blood chemistry (principal)
CPT/HCPCS: 36415; 80053; 82728; 83540; 83550; 85025; 85651

== ENCOUNTER → 2021-03-08 | Outpatient (CLI) | payer OTHER ==
[2018-04-03 17:15] VITALS: BP 113/71
--- NOTE | 2021-03-08 15:34 | RAD ---
Bilateral digital screening mammograms: Reason for examination: Routine screening. Comparison is made to previous study dated 02/14/2019 and 02/13/2018. Interpretation was made with the benefit of CAD. Findings: Breast density: Category B. There are are scattered fibroglandular densities.. There are no dominant masses, suspicious calcifications or architectural distortions. Impression: No evidence of malignancy. Assessment: BI-RADS Category 1: Negative. Recommendation: Routine screening mammograms. This patient's information has been entered into a reminder system for the patient to be notified wit h the results of her examination and a target date for the next mammogram. Electronically signed by: Anya Craig MD (03/08/2021 3:31 PM) [id number]
== END ==
LOC: MAMMO 12:35
PROVIDERS: ATTEND Family Medicine
DX: Z12.31 Encounter for screening mammogram for malignant neoplasm of breast (principal)
CPT/HCPCS: 77067

== ENCOUNTER → 2021-04-13 | Outpatient (CLI) | payer OTHER ==
[2018-04-03 17:15] VITALS: BP 113/71
[2021-04-13 14:00] LABS: BASO # 0.1 x10^3/uL (0.0-0.2); BASO % 1 % (0-3); EOS # 0.1 x10^3/uL (0.0-0.7); EOS % 1 % (0-3); HEMOGLOBIN 10.6 g/dL (12.0-15.5); LYMPH # 1.7 x10^3/uL (1.0-4.8); LYMPH % 22 % (24-48); MEAN CORPUSCULAR HEMOGLOBIN 21 pg (25-35); MEAN CORPUSCULAR HGB CONC 31 g/dL (31-37); MEAN CORPUSCULAR VOLUME 66 fL (79-100); MONO # 0.5 x10^3/uL (0.0-1.1); MONO % 7 % (0-9); NEUT # 5.4 x10^3/uL (1.8-7.7); NEUT % 70 % (31-73); PLATELET COUNT 240 x10^3/uL (140-400); RED BLOOD COUNT 5.15 x10^6/uL (3.50-5.40); RED CELL DISTRIBUTION WIDTH 16.6 % (11.5-14.5); WHITE BLOOD COUNT 7.8 x10^3/uL (4.0-11.0)
[2021-04-13 14:44] LABS: ANISOCYTOSIS SLIGHT; HYPOCHROMIA MARKED; PLT ESTIMATE ADEQUATE (ADEQUATE); POIKILOCYTOSIS SLIGHT
[2021-04-13 14:45] LABS: MICROCYTOSIS MARKED; OVALOCYTES FEW; TARGET CELLS PRESENT
[2021-04-13 15:01] LABS: CALCIUM 8.9 mg/dL (8.5-10.1); CREATININE 0.6 mg/dL (0.6-1.0); POTASSIUM 4.2 mmol/L (3.5-5.1)
[2021-04-13 15:43] LABS: ALBUMIN 3.8 g/dL (3.4-5.0); ALBUMIN/GLOBULIN RATIO 1.1 (1.0-1.7); TOTAL BILIRUBIN 0.5 mg/dL (0.2-1.0); TOTAL PROTEIN 7.3 g/dL (6.4-8.2)
== END ==
LOC: ONCLAB 13:21
PROVIDERS: ATTEND Internal Medicine Hematology & Oncology
DX: R79.89 Other specified abnormal findings of blood chemistry (principal)
CPT/HCPCS: 36415; 80053; 82728; 83540; 83550; 85025

== ENCOUNTER → 2021-06-15 | Outpatient (CLI) | payer OTHER ==
[2018-04-03 17:15] VITALS: BP 113/71
[2021-06-15 13:13] LABS: BASO % 1 % (0-3); EOS % 0 % (0-3); HEMOGLOBIN 10.6 g/dL (12.0-15.5); LYMPH # 1.8 x10^3/uL (1.0-4.8); LYMPH % 24 % (24-48); MEAN CORPUSCULAR HEMOGLOBIN 21 pg (25-35); MEAN CORPUSCULAR HGB CONC 31 g/dL (31-37); MEAN CORPUSCULAR VOLUME 66 fL (79-100); MONO # 0.5 x10^3/uL (0.0-1.1); MONO % 6 % (0-9); NEUT # 5.3 x10^3/uL (1.8-7.7); NEUT % 69 % (31-73); PLATELET COUNT 237 x10^3/uL (140-400); RED BLOOD COUNT 5.15 x10^6/uL (3.50-5.40); RED CELL DISTRIBUTION WIDTH 16.9 % (11.5-14.5); WHITE BLOOD COUNT 7.6 x10^3/uL (4.0-11.0)
[2021-06-15 13:26] LABS: CALCIUM 8.6 mg/dL (8.5-10.1); CREATININE 0.6 mg/dL (0.6-1.0); POTASSIUM 3.9 mmol/L (3.5-5.1)
[2021-06-15 13:48] LABS: PLT ESTIMATE ADEQUATE (ADEQUATE)
[2021-06-15 13:49] LABS: ANISOCYTOSIS SLIGHT; MICROCYTOSIS MARKED; POIKILOCYTOSIS SLIGHT
[2021-06-15 13:51] LABS: HYPOCHROMIA MOD
[2021-06-15 13:52] LABS: OVALOCYTES PRESENT; TARGET CELLS PRESENT
[2021-06-15 14:06] LABS: ALBUMIN 3.6 g/dL (3.4-5.0); ALBUMIN/GLOBULIN RATIO 0.9 (1.0-1.7); TOTAL BILIRUBIN 0.5 mg/dL (0.2-1.0); TOTAL PROTEIN 7.6 g/dL (6.4-8.2)
== END ==
LOC: ONCLAB 12:52
PROVIDERS: ATTEND Internal Medicine Hematology & Oncology
DX: R79.89 Other specified abnormal findings of blood chemistry (principal)
CPT/HCPCS: 36415; 80053; 82728; 83540; 83550; 85025

== ENCOUNTER → 2021-09-13 | Outpatient (CLI) | payer OTHER ==
[2018-04-03 17:15] VITALS: BP 113/71
[2021-09-13 13:57] LABS: BASO % 1 % (0-3); EOS % 0 % (0-3); HEMATOCRIT 34.9 % (36.0-47.0); LYMPH # 1.6 x10^3/uL (1.0-4.8); LYMPH % 22 % (24-48); MEAN CORPUSCULAR HEMOGLOBIN 21 pg (25-35); MEAN CORPUSCULAR HGB CONC 32 g/dL (31-37); MEAN CORPUSCULAR VOLUME 67 fL (79-100); MONO # 0.4 x10^3/uL (0.0-1.1); MONO % 6 % (0-9); NEUT # 5.2 x10^3/uL (1.8-7.7); NEUT % 72 % (31-73); PLATELET COUNT 239 x10^3/uL (140-400); RED BLOOD COUNT 5.22 x10^6/uL (3.50-5.40); RED CELL DISTRIBUTION WIDTH 16.5 % (11.5-14.5); WHITE BLOOD COUNT 7.2 x10^3/uL (4.0-11.0)
[2021-09-13 14:27] LABS: CALCIUM 9.3 mg/dL (8.5-10.1); CREATININE 0.6 mg/dL (0.6-1.0); POTASSIUM 3.9 mmol/L (3.5-5.1)
[2021-09-13 14:32] LABS: ALBUMIN/GLOBULIN RATIO 1.1 (1.0-1.7); TOTAL BILIRUBIN 0.7 mg/dL (0.2-1.0); TOTAL PROTEIN 7.7 g/dL (6.4-8.2)
[2021-09-13 18:08] LABS: HYPOCHROMIA MOD; PLT ESTIMATE ADEQUATE (ADEQUATE)
[2021-09-13 18:09] LABS: MICROCYTOSIS MARKED; OVALOCYTES PRESENT; POIKILOCYTOSIS PRESENT; TEAR DROP CELLS PRESENT
== END ==
LOC: ONCLAB 12:26
PROVIDERS: ATTEND Internal Medicine Hematology & Oncology
DX: R79.89 Other specified abnormal findings of blood chemistry (principal)
CPT/HCPCS: 36415; 80053; 82728; 83540; 83550; 85025